=== PATIENT | female | born 1940 | race Caucasian/White ===

== ENCOUNTER 2019-07-23 11:57 | Emergency (ER) | payer MEDICARE, BC ==
[~2019-07-23] VITALS: Ht 162.6 cm; Wt 44.5 kg
[~2019-07-23 11:57] MED LIST: ADAL20KI SQ; AMIO200T61 PO; AMOX-580 PO; CALC-964 PO; CHOL200035 PO; MULT-1085 PO
[2019-07-23] MEDS ORDERED: normal saline 1000ML IV soln IVB ONE (12:30)
[2019-07-23] MEDS ORDERED: diphenhydrAMINE 50 mg/ml inj IV ONE (12:30)
[2019-07-23] MEDS ORDERED: metoclopramide 5 mg/ml inj IV ONE (12:30)
[2019-07-23] MEDS ORDERED: LIDOcaine Viscous 15ml cup PO ONE (12:30)
[2019-07-23] MEDS ORDERED: LORazepam 2 mg/ml vial IV ONE (12:30)
--- NOTE | 2019-07-23 13:04 | NUR ---
PT GIVEN ATIVAN, REGLAN, BENADRYL, AND LIDO. PT NO LONGER COUGHING OR SPITTING UP. PT ABLE TO TOLARATE ICE CHIPS.
[2019-07-23 13:09] LABS: BASOPHILS % (AUTO) 0.3 % (0-1); EOSINOPHILS # (AUTO) 0.1 X10'3 (0-0.9); EOSINOPHILS % (AUTO) 1.8 % (0-6); HEMATOCRIT 43.5 % (35.0-45.0); LYMPHOCYTES # (AUTO) 1.4 X10'3 (1.1-4.8); LYMPHOCYTES % (AUTO) 28.2 % (21-51); MEAN CORPUSCULAR HEMOGLOBIN 38.5 PG (27.0-31.0); MEAN CORPUSCULAR HGB CONC 34.4 g/dL (33.0-36.5); MEAN CORPUSCULAR VOLUME 112.1 FL (78-98); MEAN PLATELET VOLUME 8.7 FL (7.4-10.4); MONOCYTES # (AUTO) 0.8 X10'3 (0-0.9); NEUTROPHILS # (AUTO) 2.8 X10'3 (1.8-7.7); NEUTROPHILS % (AUTO) 54.7 % (42-75); PLATELET COUNT 174 X10'3 (140-440); RED BLOOD COUNT 3.88 X10'6 (4.20-5.60); RED CELL DISTRIBUTION WIDTH 14.3 % (11.5-14.5); WHITE BLOOD COUNT 5.1 X10'3 (4.5-11.0)
[2019-07-23 13:25] LABS: ALANINE AMINOTRANSFERASE 19 U/L (12-78); ALBUMIN 3.7 G/DL (3.4-5.0); ALBUMIN/GLOBULIN RATIO 0.8 (1.1-1.5); ALKALINE PHOSPHATASE 75 IU/L (46-116); ANION GAP 12 (8-16); BILIRUBIN,TOTAL 1.2 MG/DL (0.1-1.0); BLOOD UREA NITROGEN 12 MG/DL (7-18); BUN/CREATININE RATIO 15.6 (6.6-38.0); CHLORIDE 105 MMOL/L (99-107); CREATININE 0.77 MG/DL (0.40-0.90); GLUCOSE 90 MG/DL (70-104); SODIUM 141 MMOL/L (135-145); TOTAL CARBON DIOXIDE 24.3 MMOL/L (24-32); TOTAL PROTEIN 8.2 G/DL (6.4-8.2); eGFR 72 ML/MIN
[2019-07-23 13:26] LABS: ASPARTATE AMINO TRANSFERASE 30 U/L (10-37); POTASSIUM 4.6 MMOL/L (3.5-5.1)
--- NOTE | 2019-07-23 13:41 | NUR ---
po challenge started per [facility]' request.
[2019-07-23] MEDS ORDERED: LORA1TAB PO (13:43)
[2019-07-23] MEDS ORDERED: LIDO20SO16 PO (13:43)
--- NOTE | 2019-07-23 13:46 | NUR ---
states the urine is not needed. pt did well with drinking water. had a half cup of water and states she feels well.
[2019-07-23 13:56] VITALS: BP 147/68
[2019-07-23 14:14] LABS: NUCLEATED RED BLOOD CELLS 1 /100WBC (0-0); TOTAL CELLS COUNTED 100
[2019-07-23 14:15] LABS: ANISOCYTOSIS 1+; PLATELET ESTIMATE NORMAL
== END 2019-07-23 13:53 | disposition home or self-care (01) ==
LOC: ER 11:58
DX: R10.13 Epigastric pain (principal); R11.0 Nausea; M19.90 Unspecified osteoarthritis, unspecified site; Z88.2 Allergy status to sulfonamides; Z79.899 Other long term (current) drug therapy
CPT/HCPCS: 36415; 80053; 85025; 96374; 96375; 99283; J1200; J2060; J2765; J7030

== ENCOUNTER 2019-12-29 09:28 | Day surgery (SDC) | payer MEDICARE, BC ==
[~2019-12-29] VITALS: Ht 160 cm; Wt 41.8 kg
[~2019-12-29 09:28] MED LIST changes: +LIDO20SO16 PO
[2019-12-29 09:39] VITALS: BP 106/78
[2019-12-29] MEDS ORDERED: IBUP-1985 PO (09:57)
[2019-12-29] MEDS ORDERED: MIDAZolam 5mg/5ml vial ONE (10:01)
[2019-12-29] MEDS ORDERED: LIDOcaine Viscous 15ml cup ONE (10:01)
[2019-12-29] MEDS ORDERED: fentaNYL/PF 50MCG/1 ML 2ML syringe ONE (10:01)
[2019-12-29 10:30] VITALS: BP 115/70
[2019-12-29 10:39] VITALS: BP 105/70
[2019-12-29 10:49] VITALS: BP 116/59
[2019-12-29 10:59] VITALS: BP 111/69
== END 2019-12-29 11:00 | disposition home or self-care (01) ==
LOC: GI LAB 09:28
PROVIDERS: ATTEND Internal Medicine Gastroenterology
DX: K22.2 Esophageal obstruction (principal); C15.9 Malignant neoplasm of esophagus, unspecified; K29.70 Gastritis, unspecified, without bleeding
CPT/HCPCS: 43239; 43249; 99152; C1726; J2250; J3010; J7040; 88305